=== PATIENT | male | born 1995 | race African-American/Black ===

== ENCOUNTER 2017-09-14 07:37 | Emergency (ER) | payer MEDICAID ==
[~2017-09-14] VITALS: Ht 182.9 cm; Wt 59.0 kg
[2017-09-14 07:50] VITALS: BP 147/88
[2017-09-14] MEDS ORDERED: KETOROLAC TROMETH 60MG/2ML VIAL IM ONE (08:15)
[2017-09-14] MEDS ORDERED: cefTRIAXone SOD 1,000 MG VL IM ONE (08:15)
== END 2017-09-14 08:48 | disposition home or self-care (01) ==
LOC: ER 07:37
DX: K04.7 Periapical abscess without sinus (principal)
CPT/HCPCS: 96372; 99284; J0696; J1885